=== PATIENT | male | born 1940 | race Caucasian/White ===

== ENCOUNTER 2022-01-23 11:40 | Outpatient (CLI) | payer OTHER, SELFPAY ==
[2022-01-23 17:24] LABS: Albumin* 4.2 g/dL (3.3-5.0); Chloride* 103 mmol/L (96-114); Sodium* 139 mmol/L (135-149)
[2022-01-23 17:26] LABS: Aspartate Amino Transferase* 29 U/L (12-35); Bilirubin Total* 0.5 mg/dL (0.1-1.5); Carbon Dioxide* 27 mmol/L (20-32); Creatinine* 1.1 mg/dL (0.5-1.5); Estimated Glomerular Filt Rate 67 ml/min
[2022-01-23 17:27] LABS: Alanine Aminotransferase* 26 U/L (4-50); Alkaline Phosphatase* 67 U/L (40-150); Blood Urea Nitrogen* 25 mg/dL (7-30); Calcium* 9.7 mg/dL (8.4-10.6); Glucose* 102 mg/dL (60-115); Total Protein* 7.2 g/dL (6.0-8.3)
== END 2022-01-23 11:41 | disposition home or self-care (01) ==
PROVIDERS: PCP Family Medicine; Visit Provider Family Medicine
DX: R53.1 Weakness (principal); R05.9 Cough, unspecified
CPT/HCPCS: 80053; 84443

== ENCOUNTER 2022-10-23 08:30 | Outpatient (CLI) | payer OTHER, SELFPAY | END 2022-10-23 08:31 | disposition home or self-care (01) | LOC: NFLDREF 10-25 10:54 | PROVIDERS: PCP Family Medicine; Referring Provider Family Medicine; Visit Provider Family Medicine | DX: R53.1 Weakness (principal); R53.83 Other fatigue; Z13.29 Encounter for screening for other suspected endocrine disorder; Z13.21 Encounter for screening for nutritional disorder; Z12.5 Encounter for screening for malignant neoplasm of prostate | CPT/HCPCS: 80048; 82306; 82607; 84153; 84403; 84443 ==

== ENCOUNTER 2023-12-01 13:27 | Outpatient (CLI) | payer OTHER, SELFPAY | END 2023-12-01 13:28 | disposition home or self-care (01) | PROVIDERS: PCP Internal Medicine; Visit Provider Internal Medicine | DX: E78.5 Hyperlipidemia, unspecified (principal); Z13.228 Encounter for screening for other metabolic disorders; Z12.5 Encounter for screening for malignant neoplasm of prostate | CPT/HCPCS: 80053; 80061; G0103 ==

== ENCOUNTER 2023-12-12 14:47 | Outpatient (CLI) | payer OTHER, SELFPAY | END 2023-12-12 14:48 | disposition home or self-care (01) | LOC: CT 14:49 | PROVIDERS: Visit Provider Orthopaedic Surgery Sports Medicine | DX: M75.101 Unspecified rotator cuff tear or rupture of right shoulder, not specified as traumatic (principal); M12.811 Other specific arthropathies, not elsewhere classified, right shoulder; M19.011 Primary osteoarthritis, right shoulder | CPT/HCPCS: 73200 ==

== ENCOUNTER 2024-02-12 13:27 | Outpatient (RCR) | payer OTHER, SELFPAY ==
--- NOTE | 2024-02-12 16:54 | PT.OPEX ---
PT [place] [facility] Eval PT [facility] Eval Start: 02/12/24 10:29 Freq: Status: Active Protocol: Document 02/12/24 10:32 NICOLE (Rec: 02/12/24 16:52 NICOLE [id number]) E-signed By Antwon Johnson DPT Physical Therapy Outpatient Evaluation Insurance Information Recert Due Date 05/12/24 Insurance Name Other; See Comments Insurance Information/Comments [employer] gold choice Medical Diagnosis R rotator cuff tear Treating Diagnosis R shoulder pain muscle weakness Referring MD natalie yu Subjective Subjective Zev comes into clinic dealing with R shoulder pain with expected tear of rotator cuffs . He was originally planning on getting a shoulder replacement however, he felt his L knee was worse and in need of L TKA. His biggest goal for therapy is to try improving the pain in his R shoulder as much as he can, especially prior to his surgery. He notes significant limitation with reaching away from his body or overhead. Uses a fair amount of tylenol for pain relief. Can get pain time to time with holding objects near. Pain Comments 0-5/10 Current Work Status Retired Precautions Treatment Precautions/Contraindications hx pacemaker, will get LTKA in ~2-3 weeks Objective Other/Pertinent Objective SHOULDER AROM Flexion: R65 L120 Abduction: R70 L 130 Internal Rotation: R L 4 External Rotation: R45 NECK/SHOULDER MMT: Shoulder flexion: R 2+/5 L4- / 5 Shoulder abduction: R 2+/5 L 4 -/5 Shoulder External Rotation: R 2+/5 L4 /5 Shoulder Internal Rotation: R 4/5 L 5/5 Elbow flexion: R 3+/5 L 4+/5 Assessment Assessment/Impression Pt is a 83 yr old male who presents with concerns of R shoulder pain secondary to RC tearing. Patient also has notable objective findings including limited ROM, impaired GH stability , decreased strength also likely contributing to the problem. Patient is a good candidate for skilled therapy to target deficits described above. Skilled PT intervention is necessary for use of therapeutic exercise manual therapy, neuromuscular re- education, and therapeutic activity. Functional impairments include difficulty with: lifting reaching carrying. See appropriate sections of PT eval for complete list of goals and POC . D/C plan and criteria is for pt to achieve the goals as listed below or until max rehab potential is met. Pt was agreeable with plan of care and goals established. 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 Coordination/Communication With Referral Source Treatment Plan/Direct Interventions Joint Mobilization,Manual Therapy,Neuromuscular Re-ed, Self-Care/Home Management, Therapeutic Activities, Therapeutic Exercises Frequency/Duration 1-2 visits a week for 6-8 weeks Patient Will Be Discharged From Therapy Completion of LTG(s), Independent w/HEP, Independently Progressing Evaluation Billing Untimed Code Treatment Minutes 15 Complexity Low Certification Information Initial Certification Date 02/12/24 Ending Certification Date 05/12/24 Provider Signature Required Yes Provider Signature Shows Agreement With POC & Medical Necessity Physician NPI Number Write NPI# Here Physician Comment/Change : Physician Signature & Date Requested Please Sign/Date Here
== END 2024-06-01 07:35 | disposition home or self-care (01) ==
PROVIDERS: PCP Physician Assistant; Visit Provider Orthopaedic Surgery Sports Medicine
DX: M75.101 Unspecified rotator cuff tear or rupture of right shoulder, not specified as traumatic (principal); M12.811 Other specific arthropathies, not elsewhere classified, right shoulder; M62.81 Muscle weakness (generalized); M25.511 Pain in right shoulder; Z51.89 Encounter for other specified aftercare
CPT/HCPCS: 97110; 97140; 97161

== ENCOUNTER 2024-03-01 07:07 | Day surgery (SDC) | payer OTHER, SELFPAY ==
[2024-03-01] VITALS (22 sets, daily range): BP systolic 102–160; BP diastolic 57–96; PULSE 69–90; RESP 14–20; TEMP 35.5–36.8; O2SAT 93–98; BMI 31.6
[2024-03-01] MEDS: ACETAMINOPHEN 500 MG TABLET 1000 MG PO ×3 (07:14→20:20)
[2024-03-01] MEDS: OXYCODONE (CR) 10 MG TAB.ER.12H PO (07:14)
[2024-03-01] MEDS: SODIUM CHLORIDE 0.9 % (FLUSH) 10 ML SYRINGE IVF (08:20)
[2024-03-01] MEDS: LACTATED RINGERS 1000 ML 1,000 ML 100 ML IV ×2 (08:20→10:54)
--- NOTE | 2024-03-01 10:00 | W.PM.H&PU ---
History & Physical Update History & Physical Update H&P Reviewed and patient assessed: No changes noted
--- NOTE | 2024-03-01 10:09 | CRLHL7_ITS ---
For Patients: As a result of the Cures Act, medical imaging exams and procedure reports are released immediately into your electronic medical record. You may view this report before your referring provider. If you have questions, please contact your health care provider. INDICATION: Left postop TECHNIQUE: Two views left knee FINDINGS/IMPRESSION: Left knee arthroplasty in appropriate position. Postoperative soft tissue edema and gas. Dictated by Michelle Fall MD @ 03/02/2024 6:02:37 AM (Electronically Signed)
[2024-03-01] MEDS: fentaNYL 100 MCG/2 ML inj IVP (10:20)
[2024-03-01] MEDS: MIDAZOLAM HCL 1 MG/ML inj IVP (10:20)
--- NOTE | 2024-03-01 10:25 | SUR.PREOP ---
TIME?OUT:?left knee PT/RN/MDA?VERIFICATION?OF?SURGICAL?SITE,?PROCEDURE,?AND?CONSENT OBTAINED?PRIOR?TO?INVASIVE?PROCEDURE.
--- NOTE | 2024-03-01 10:50 | P.NB_ITS ---
Nerve Block Nerve Block Time Seen by Provider: 10:20 Date Seen: 03/01/24 Type of block requested by surgeon for post-operative analgesia: adductor canal Side: left Time out performed: Yes Verification of patient name: Yes Verification of date of : Yes Site marking: site marked Name of person performing procedure: Sharath Continuous monitoring Was continuous monitoring of O2 sat, B/P, school bus monitor, recorded every 15 minutes?: Yes Procedure Checklist: sterile prep, needles and gloves Ultrasound guided. Images saved: Yes Medications given in 5ml increments after negative aspiration: Ropivicaine %: 0.5 mL: 20 Needle gauge: 20 Decadron (mg): 10 Precedex (mcg): 25 Patient tolerated procedure well: Yes Additional comments: Needle noted adjacent to nerve Block Charges Block Charge (with Pro Fee): Femoral Nerve Use of Ultrasound Machine for Block: Yes- US Guidance/pain block
--- NOTE | 2024-03-01 10:50 | W.ANESCHARGE ---
Anesthesia Charges Start Date/Time Anesthesia Start Date: 03/01/24 Anesthesia Start Time: 10:30 Stop Date/Time Anesthesia Stop Date: 03/01/24 Anesthesia Stop Time: 13:18 Summary Extremes of Age - Over 70 or under 1: MDA
--- NOTE | 2024-03-01 10:50 | W.PM.NB ---
Nerve Block Nerve Block Time Seen by Provider: 10:20 Date Seen: 03/01/24 Type of block requested by surgeon for post-operative analgesia: geniculars Side: left Time out performed: Yes Verification of patient name: Yes Verification of date of : Yes Site marking: site marked Name of person performing procedure: Sharath Continuous monitoring Was continuous monitoring of O2 sat, B/P, electrical estimator, recorded every 15 minutes?: Yes Procedure Checklist: sterile prep, needles and gloves Medications given in 5ml increments after negative aspiration: Ropivicaine %: 0.5 mL: 9 Needle gauge: 25 Patient tolerated procedure well: Yes Block Charges Block Charge (with Pro Fee): Genicular Nerve Block Use of Ultrasound Machine for Block: No
[2024-03-01] MEDS: TRANEXAMIC ACID 100 MG/ML INJ 1000 MG IV (10:52)
[2024-03-01] MEDS: CEFAZOLIN 2 GM in 0.9 % SODIUM CHLORIDE Mini-bag 100 ML IVPB ×2 (10:52→18:06)
--- NOTE | 2024-03-01 11:34 | W.ANESCHARGE ---
Anesthesia Charges Start Date/Time Anesthesia Start Date: 03/01/24 Anesthesia Start Time: 10:30 Stop Date/Time Anesthesia Stop Date: 03/01/24 Anesthesia Stop Time: 13:18 Summary Extremes of Age - Over 70 or under 1: DEAN OF FACULTY
--- NOTE | 2024-03-01 12:29 | P.ORPRC_ITS ---
Procedure Note Date of procedure: 03/01/24 Procedure: PREOPERATIVE DIAGNOSIS: 1. Left knee osteoarthritis, primary, severe POSTOPERATIVE DIAGNOSIS: 1. Left knee osteoarthritis, primary, severe PROCEDURE: 1. Left total knee arthroplasty - subvastus SURGEON: Amari Jarrett MD. CREATIVE ART DIRECTOR: Chris Stallings PA-C - Of note, a skilled junior assistant manager was critical for this case to aid in patient positioning, tissue retraction, limb manipulation/positioning, and closure. ANESTHESIA: Spinal anesthetic EBL: 50ml IMPLANTS: DePuy J&J all cemented TKA - Attune PS femur size 8, size 8 tibia, 6 mm poly spacer, 41mm patella TOURNIQUET: 100 minutes at 300 torr COMPLICATIONS: None evident INDICATIONS: The patient is a pleasant 83-year-old male who has experienced severe left knee pain and difficulty bearing weight. Workup included x-rays which revealed severe osteoarthrosis in the knee. Given the deformity, the dysfunction, and the pain, as well as the failure of nonoperative management, recommendation was made for surgery. FINDINGS: Full-thickness chondral loss diffusely throughout the medial compartment. Degenerative medial meniscus pathology. DESCRIPTION OF PROCEDURE: Following a thorough discussion of risks, benefits, and alternatives consent was obtained and the left knee was marked. The patient was brought to the operating room and placed supine on the operating table. Induction of anesthesia was undertaken. 2 g IV Ancef and 1 g tranexamic acid was administered within 1 hr of incision preoperatively. Proper time-out was performed identifying proper patient, site, procedure. The operative extremity w as prepped and draped in the appropriate sterile fashion using ChloraPrep after the patient was positioned supine with all bony prominences well padded. A longitudinal, anterior, midline skin incision was made starting approximately 3cm proximal to the superior pole of the patella and advanced distal to the tibial tubercle. A subvastus approach was utilized. A medial subperiosteal sleeve was created with knife, hearn elevator and curved osteotome. The retropatellar fatpad was resected and the synovium in the suprapatellar pouch excised to visualize the anterior femoral cortex. Femoral preparation was performed via an intramedullary guide. Step drill allowed access into the femoral canal. The distal cutting guide was placed with 5? of valgus and 12 mm cut on the distal femur. Femur was sized using a anterior referencing guide in 3? of external rotation. This found have a best fit with the sizing noted above. The 4 in 1 cutting block was then placed, and the distal femur shaped accordingly. The box cut was then created and the trial implant inserted to confirm appropriate fit. We turned our attention to the proximal tibia. Extramedullary guide was utilized for cutting with the goal of being 90 degree cut from the mechanical axis of the tibia in the varus/valgus plane utilizing tibial crest as the primary alignment. Initially a 3 mm resection was performed from the medial tibial plateau. Ultimately, balancing was achieved in both flexion and extension in both varus and valgus. The knee was able to achieve full extension as well comfortably. The patella was initially measured and found have a thickness of 26 mm. It was resected back to approximately 15 mm. It was sized to be a best fit with as noted above. This was drilled, trial placed. All trials were placed and found to have an excellent stability and balance. At this stage, trial implants were removed, the knee was thoroughly irrigated with normal saline, and the cement was mixed. After irrigation, the knee was thoroughly dried, and cement placed, with the real tibial and femoral implants placed along with the patella. Trial poly spacer was placed and confirmed to have excellent range of motion and full extension, and the real poly spacer opened and inserted. All extra cement was removed, and a 3 min Betadine soak performed. Finally, a final irrigation round with normal saline was performed. Closure performed with 0 PDS and #0 Stratafix for the quad tendon/retinaculum. 2-0 Vicryl/Stratafix for the subcutaneous and 4-0 Monocryl for subcuticular closure. Dressings were applied and the patient was awoken from anesthesia after the tourniquet deflated and transferred the PACU in stable condition. A skilled junior assistant manager was critical for this case to aid in patient positioning, tissue retraction, bone exposure, limb manipulation/positioning, patient safety, and closure. PLAN: 1. Weight bear as tolerated operative extremity. 2. 23 hr perioperative antibiotics. 3. Ice. 4. PT/OT consults for ambulation assistance/mobility education. 5. Social work consult for discharge planning. 6. DVT prophylaxis with at SCDs and aspirin twice daily.
--- NOTE | 2024-03-01 15:09 | P.IMCN_ITS ---
Date of Consult Patient: Other Consult date: 03/01/24 Requesting Physician: Orthopedics Primary Care Provider: Yo Jason PA-C Consult Narrative Narrative: Osman Manning is a 83 year old male admitted to the hospital for left total knee arthroplasty. Procedure performed by Dr. Jarrett. No complications. Dr. Jarrett requests consultation for management of medical problems. Patient reports doing well at this time. Not having significant pain or nausea. He has no concerns. He is had a preop physical which did not identify any significant medical problems or concerns for the perioperative period. No recent illness or injury. [facility] Medical History (Updated 03/01/24 @ 15:15 by Darnell Luu MD) Right rotator cuff tear arthropathy ?M75.101 - Unspecified rotator cuff tear or rupture of right shoulder, not specified as traumatic (ICD-10) ?M12.811 - Other specific arthropathies, not elsewhere classified, right shoulder (ICD-10) Chronic obstructive pulmonary disease ?J44.9 - Chronic obstructive pulmonary disease, unspecified (ICD-10) Hyperlipidemia (12/19/08) ?E78.5 - Hyperlipidemia, unspecified (ICD-10) Osteoarthritis of lumbar spine ?M47.816 - Spondylosis without myelopathy or radiculopathy, lumbar region (ICD-10) Mobitz type I incomplete atrioventricular block ?I44.1 - Atrioventricular block, second degree (ICD-10) Spinal stenosis of lumbar region ?M48.061 - Spinal stenosis, lumbar region without neurogenic claudication (ICD-10) GERD (gastroesophageal reflux disease) ?K21.9 - Gastro-esophageal reflux disease without esophagitis (ICD-10) Weakness ?R53.1 - Weakness (ICD-10) Reactive airway disease ?J45.909 - Unspecified asthma, uncomplicated (ICD-10) Calculus of kidney (12/19/08) ?N20.0 - Calculus of kidney (ICD-10) Hypogonadism in male ?E29.1 - Testicular hypofunction (ICD-10) Left rotator cuff tear arthropathy ?M75.102 - Unspecified rotator cuff tear or rupture of left shoulder, not specified as traumatic (ICD-10) ?M12.812 - Other specific arthropathies, not elsewhere classified, left shoulder (ICD-10) Pseudoparalysis ?R29.818 - Other symptoms and signs involving the nervous system (ICD-10) Hard of hearing ?H91.90 - Unspecified hearing loss, unspecified ear (ICD-10) Multiple pulmonary nodules (02/13/09) ?R91.8 - Other nonspecific abnormal finding of lung field (ICD-10) Diverticulosis of intestine (12/19/08) ?K57.90 - Diverticulosis of intestine, part unspecified, without perforation or abscess without bleeding (ICD-10) Surgical History (Updated 03/01/24 @ 15:13 by Darnell Luu MD) History of arthroplasty of left knee ?Z96.652 - Presence of left artificial knee joint (ICD-10) Status post cardiac pacemaker procedure ?Z95.0 - Presence of cardiac pacemaker (ICD-10) History of varicose vein ligation and stripping ?Z98.890 - Other specified postprocedural states (ICD-10) History of inguinal hernia repair (12/19/08) ?Z98.890 - Other specified postprocedural states (ICD-10) ?Z87.19 - Personal history of other diseases of the digestive system (ICD-10) Family History (Updated 03/01/24 @ 15:16 by aDrnell Luu MD) Sister Alzheimers disease Multiple sclerosis Social History (Updated 03/01/24 @ 15:17 by Darnell Luu MD) Narrative: He lives [place]. He lives in a house that has 2 steps to get in but then he lives on 1 level. His friend Ezekiel is going to help him after surgery. His friend Ezekiel is healthcare power of assistant district attorney. Code status is DNR. Remote history of smoking cigarettes. He drinks a couple alcoholic beverages per week. What is your current living situation?: I presently do not have a place to live Problems where you live: no known problems In the past 12 months, utilities in danger of being shut off: no In past 12 months, lack of transportation kept you from medical appts, meetings, work, or getting things needed for daily living: no In the past 12 mos, have been you worried that your food would run out before you had money to buy more?: never true In the past 12 mos, the food you bought just didn't last and you didn't have money to buy more?: never true Smoking Status: Never smoker Do you use any of these nicotine containing products: None Second hand tobacco smoke exposure: No How often do you have a drink containing alcohol: 2-3 times a week Alcohol type: beer How many standard drinks containing alcohol do you have on a typical day: 1 or 2 AUDIT-C Alcohol total score: 3 Non-prescribed substance use: denies use Caffeine: Yes How often does anyone, including family, friends and others, physically hurt you : never How often does anyone, including family, friends and others, insult or talk down to you: never How often does anyone, including family, friends and others, threaten you with harm: never How often does anyone, including family, friends and others, scream or curse at you: never Little interest or pleasure in doing things: not at all Feeling down, depressed, or hopeless: not at all service: Yes Meds Home Medications and Allergies Home Medications ?Medication ?Instructions ?Recorded ?Confirmed ?Type albuterol sulfate 90 mcg/actuation 2 inhalation PRN 12/24/21 02/10/24 History aerosol inhaler aspirin 81 mg tablet,delayed 81 mg PO QDAY 12/24/21 03/01/24 History release multivitamin 1 tab PO QDAY 12/24/21 03/01/24 History Allergies Allergy/AdvReac Type Severity Reaction Status Date / Time No Known Allergies Allergy Verified 03/01/24 07:32 Exam Narrative: Exam Narrative: He is alert and appears in no obvious distress. He is quite hard of hearing. Eyes normal. Oropharynx with small airway. No facial asymmetry. Neck is supple without mass or adenopathy. Respirations are clear to auscultation with somewhat diminished breath sounds in all lung roberts. Cardiovascular: S1, S2, regular rate and rhythm. Abdomen: Bowel sounds active. Abdomen is soft without tenderness or mass. Lower extremities without significant edema. Intact pedal pulses. Intact strength and motion in both ankles. Knee incision is covered with a Bandage and no obvious redness swelling or drainage. Const: Vital Signs, click to edit/add: Vital Signs - 24 hr 03/01/24 07:52 03/01/24 10:20 03/01/24 10:25 Temperature 97.6 F Pulse Rate 70 79 73 Respiratory Rate 20 20 20 Blood Pressure 149/80 H 137/73 127/65 Pulse Oximetry 95 95 95 Oxygen Delivery Me thod Room Air Nasal Cannula Nasal Cannula Oxygen Flow Rate 3 3 03/01/24 13:15 03/01/24 13:20 03/01/24 13:25 Temperature 97.1 F L Pulse Rate 70 72 69 Respiratory Rate 14 16 16 Blood Pressure 102/77 104/71 128/74 Pulse Oximetry 96 96 96 Oxygen Delivery Me thod Room Air Room Air Room Air Oxygen Flow Rate 03/01/24 13:30 03/01/24 13:35 03/01/24 13:40 Temperature 97.1 F L Pulse Rate 70 71 69 Respiratory Rate 16 16 16 Blood Pressure 141/79 H 131/79 141/91 H Pulse Oximetry 95 96 95 Oxygen Delivery Me thod Room Air Room Air Room Air Oxygen Flow Rate Documenting provider has reviewed patient's vital signs: yes Assessment and Plan Assessment and plan (1) History of arthroplasty of left knee: Problem comment: 03/01/2024, Dr. Jarrett, no complications Status: Acute Plan Patient is admitted to the hospital for knee arthroplasty and postoperative care. Patient is indicated some concerns about his ability to live independently after surgery. Friend Ezekiel is apparently available to assist. Will have therapy assess his mobility. Will monitor for complications of his chronic medical problems. Total Time Spent Total Time Spent: 40 minutes
[2024-03-01] MEDS: OXYCODONE 5 MG TABLET PO ×2 (15:10→20:20)
[2024-03-01] MEDS: MONTELUKAST 10 MG TABLET PO (18:07)
--- NOTE | 2024-03-01 19:29 | PC.NURSE ---
Patient alert and oriented x4. Arrived to the unit around 1800. Complains of nausea. CIWA negative. Complains of neck pain. Vital signs stable.
--- NOTE | 2024-03-01 19:38 | PC.NURSE ---
Patient alert and oriented. Ambulating to the bathroom with Ax1 with walker and gait belt. Had 100% of his dinner, tolerated well with no nausea or vomiting. Vital signs stable. Pain being managed by PRN medications. Dressing at surgical site clean dry and intact
[2024-03-01] MEDS: SENNOSIDES 1 TAB TABLET 2 TAB PO (20:19)
[2024-03-01] MEDS: ASPIRIN 81 MG TABLET EC PO (20:20)
[2024-03-02] MEDS: OXYCODONE 5 MG TABLET PO ×4 (02:04→12:15)
[2024-03-02] MEDS: CEFAZOLIN 2 GM in 0.9 % SODIUM CHLORIDE Mini-bag 100 ML IVPB (02:04)
[2024-03-02] MEDS: ACETAMINOPHEN 500 MG TABLET 1000 MG PO ×2 (02:04→08:25)
[2024-03-02 02:19] VITALS: BP 167/81; PULSE 92; RESP 20; TEMP 36.6; O2SAT 97
[2024-03-02] MEDS: OMEPRAZOLE 20 MG CAPSULE DR PO (06:17)
[2024-03-02 06:31] LABS: Basophils Percent Auto 0.1 % (0.0-3.0); Hematocrit 36.9 % (37.0-53.0); Immature Granulocytes Pct Auto 0.1 %; Mean Corpuscular HGB Conc 33 gm/dL (32-36); Mean Corpuscular Hemoglobin 31 pg (26-34); Mean Corpuscular Volume 96 fL (80-100); Neutrophils Percent Auto 79.8 % (42.0-72.0); Platelet Count* 183 K/uL (140-440); RDW Coefficient of Variation % 12.6 % (11.5-15.5); Red Blood Count 3.85 m/uL (4.30-5.90); White Blood Count* 14.97 K/uL (4.50-11.00)
[2024-03-02 06:33] LABS: Slide Review Reflex No
[2024-03-02 06:49] LABS: Potassium* 4.5 mmol/L (3.6-5.1); Sodium* 137 mmol/L (135-149)
--- NOTE | 2024-03-02 06:49 | PC.NURSE ---
23-07: pleasant and cooperative. calls appropriately. SBA with gb and walker, tolerated well. Rates pain 7/10 in left knee, prn oxy given x 2, active ice on. Dressing to knee CDI. VSS. Pts friend to be here at 0800 to learn with therapies as he will be his caregiver during recovery.
[2024-03-02 06:52] LABS: Blood Urea Nitrogen* 20 mg/dL (7-30); Creatinine* 0.8 mg/dL (0.5-1.5); Est. Creatinine Clearance* 59.61; Estimated Glomerular Filt Rate 88 ml/min
[2024-03-02 07:50] VITALS: BP 145/82; PULSE 73; RESP 18; TEMP 36.9; O2SAT 97
[2024-03-02] MEDS: ASPIRIN 81 MG TABLET EC PO (08:25)
[2024-03-02] MEDS: SENNOSIDES 1 TAB TABLET 2 TAB PO (08:25)
[2024-03-02] MEDS: MULTIVITAMIN/MINERALS 1 TABLET 1 TAB PO (08:25)
--- NOTE | 2024-03-02 10:35 | PM.ORPN ---
Subjective Subjective Date Seen: 03/02/24 Principal diagnosis: Status postop day 1 left total knee arthroplasty Interval history: Patient reports doing okay No acute events over night. Struggling with pain at times. Pain managed with scheduled and PRN medications, ice. DVT prophylaxis: 81 mg aspirin by mouth twice daily, SCDs, walking. Denies fevers, chills, aches, N/V, CP, SOB/JORDAN, or lightheadedness. Passing flatus. Reports that he does not have outpatient physical therapy scheduled. Requesting PT to be in the afternoon which is when he will have a ride available. Ortho Exam Narrative Exam Narrative: -Patient appears comfortable; no apparent acute distress -Alert and oriented times 3 -Operative knee notably swollen; no induration; no significant ecchymosis; no erythematous streaking Warmth appropriate -Surgical dressing clean, dry, intact; no drainage -Bilateral calfs soft; no significant swelling, edema, tenderness, erythema, discoloration, warmth, or palpable cords -2+ DP/PT pulses, intact dermatomes and myotomes distally (5/5 strength) Const Vital Signs, click to edit/add: Vital Signs - 24 hr 03/01/24 13:15 03/01/24 13:20 03/01/24 13:25 Temperature 97.1 F L Pulse Rate 70 72 69 Pulse Rate [Right Pulse Oximeter] Respiratory Rate 14 16 16 Blood Pressure 102/77 104/71 128/74 Blood Pressure [Left Arm] Pulse Oximetry 96 96 96 Oxygen Delivery Method Room Air Room Air Room Air 03/01/24 13:30 03/01/24 13:35 03/01/24 13:40 Temperature 97.1 F L Pulse Rate 70 71 69 Pulse Rate [Right Pulse Oximeter] Respiratory Rate 16 16 16 Blood Pressure 141/79 H 131/79 141/91 H Blood Pressure [Left Arm] Pulse Oximetry 95 96 95 Oxygen Delivery Method Room Air Room Air Room Air 03/01/24 13:50 03/01/24 14:00 03/01/24 14:15 Temperature 96.1 F L 96 F L 96 F L Pulse Rate 71 70 70 Pulse Rate [Right Pulse Oximeter] Respiratory Rate 16 16 18 Blood Pressure 115/71 155/91 H 145/88 H Blood Pressure [Left Arm] Pulse Oximetry 96 96 96 Oxygen Delivery Method Room Air Room Air Room Air 03/01/24 14:30 03/01/24 14:45 03/01/24 15:00 Temperature 96.8 F L Pulse Rate 70 71 Pulse Rate [Right Pulse Oximeter] Respiratory Rate 18 16 Blood Pressure 160/96 H 158/90 H Blood Pressure [Left Arm] Pulse Oximetry 96 97 96 Oxygen Delivery Method Room Air Room Air 03/01/24 15:00 03/01/24 15:15 03/01/24 15:45 Temperature 97.3 F L Pulse Rate 77 Pulse Rate [Right Pulse Oximeter] 77 Respiratory Rate 18 18 Blood Pressure 120/90 H Blood Pressure [Left Arm] 152/83 H Pulse Oximetry 96 96 Oxygen Delivery Method Room Air Room Air Room Air 03/01/24 17:00 03/01/24 18:00 03/01/24 19:00 Temperature 97.9 F 98.3 F Pulse Rate 74 Pulse Rate [Right Pulse Oximeter] 78 90 Respiratory Rate 20 20 Blood Pressure 140/70 H Blood Pressure [Left Arm] 152/79 H 132/78 Pulse Oximetry 93 98 95 Oxygen Delivery Method Room Air Room Air Room Air 03/01/24 20:00 03/01/24 23:30 03/01/24 23:30 Temperature Pulse Rate 80 Pulse Rate [Right Pulse Oximeter] 83 Respiratory Rate 18 Blood Pressure 147/57 H Blood Pressure [Left Arm] Pulse Oximetry 96 95 Oxygen Delivery Method Room Air 03/01/24 23:30 03/01/24 23:30 03/02/24 02:19 Temperature 98.3 F 97.8 F Pulse Rate Pulse Rate [Right Pulse Oximeter] 83 92 Respiratory Rate 18 18 20 Blood Pressure Blood Pressure [Left Arm] 156/77 H 167/81 H Pulse Oximetry 95 95 97 Oxygen Delivery Method Room Air Room Air Room Air 03/02/24 07:50 03/02/24 07:50 03/02/24 07:50 Temperature Pulse Rate Pulse Rate [Right Pulse Oximeter] 73 Respiratory Rate 18 Blood Pressure Blood Pressure [Left Arm] Pulse Oximetry 97 97 Oxygen Delivery Method Room Air 03/02/24 07:50 Temperature 98.5 F Pulse Rate Pulse Rate [Right Pulse Oximeter] 73 Respiratory Rate 18 Blood Pressure Blood Pressure [Left Arm] 145/82 H Pulse Oximetry 97 Oxygen Delivery Method Room Air Assessment and Plan Assessment and plan (1) History of arthroplasty of left knee: Problem details: 03/01/2024, Dr. Jarrett, no complications Status: Acute Plan - Complete 23 hour perioperative antibiotics. - PT/OT consult for education and assistance. - Social work consult for discharge planning - Prescribed analgesics as needed - DVT prophylaxis: 81 mg aspirin by mouth twice daily, walking, and SCDs - Anticipation is for discharge to home with family/friends today 03/02/2024 if the patient remains medically stable, pain is controlled, and they are safe with mobilization. - PT is now scheduled to start 03/04/2024 in [place]
--- NOTE | 2024-03-02 10:48 | PC.SOCIAL ---
Discharge planning: utility worker met with pt and his friend, Cesar, today in pt's room. Pt plans to go home today and his friend Cesar is able to stay with him until Friday. Pt's daughter will be giving him rides to his outpatient physical therapy appointments that start on in [place]. Social work to follow-up as needed.
== END 2024-03-02 12:17 | disposition home or self-care (01) ==
LOC: OR 07:09 → MEDSURG 07:11
PROVIDERS: PCP Physician Assistant; Visit Provider Orthopaedic Surgery Sports Medicine
PROC: (CPT 27447; principal; 2024-03-01 09:45)
DX: M17.12 Unilateral primary osteoarthritis, left knee (principal); G89.18 Other acute postprocedural pain; J44.9 Chronic obstructive pulmonary disease, unspecified; I44.1 Atrioventricular block, second degree; M48.061 Spinal stenosis, lumbar region without neurogenic claudication; K21.9 Gastro-esophageal reflux disease without esophagitis; Z95.0 Presence of cardiac pacemaker; E78.5 Hyperlipidemia, unspecified
CPT/HCPCS: 27447; 01402; 36415; 64447; 64454; 73560; 76942; 82565; 84132; 84295; 84520; 85025; 97110; 97116; 97161; 97165; 97530; 99100; A9153; A9270; C1776; J0690; J1100; J2250; J2405; J2704; J2795; J3010; J7120

== ENCOUNTER 2024-04-01 15:15 | Outpatient (RCR) | payer OTHER, SELFPAY ==
--- NOTE | 2024-02-23 14:35 | PT.OPEX ---
PT [place] [facility] Eval PT [facility] Out[facility] Eval Start: 02/23/24 10:43 Freq: Status: Active Protocol: Document 02/23/24 13:22 NLR (Rec: 02/23/24 13:55 NLR [id number]) E-signed By Theresa Dc DPT Physical Therapy Outpatient Evaluation Insurance Information Recert Due Date 05/23/24 Insurance Name Medicare B,Other; See Comments Insurance Information/Comments [employer] Medical Diagnosis M17.12 Unilateral primary osteoarthritis, left knee Z96.652 Presence of Left artificial knee joint Treating Diagnosis M25.562 Left Knee pain M25.662 Left Knee stiffness Imaging Report Information 01/13/24 X-ray: Weightbearing AP, Lateral and Mccune views of the left knee were obtained today from [facility], were ordered and reviewed by me, and show severe osteoarthrosis primarily involving the medial knee with [id number] joint space loss, subchondral sclerosis, and subchondral cystic change. Tricompartmental osteophytes also noted. No acute fractures avulsions. Subjective Preferred Name ZEV Subjective Patient has been seeing PT for a Right rotator cuff tear but also struggling with L knee pain and weakness for quite some time. He will likely need a shoulder surgery in the future, but Dr. Jarrett recommended knee surgery first . Pain Comments Varies Date of Last Physician Visit 01/14/24 Date of Surgery (If applicable) 03/01/24 Current Work Status Retired Occupation Patient is a retired construction project manager. He lives alone in a multilevel home with steps to enter with railing. Bedroom, bathroom and laundry are all on main floor. Precautions Treatment Precautions/Contraindications PACEMAKER Weight Bearing Status Weight Bear as Tolerated Therapy Limitations/Systems Review Hearing Objective Other/Pertinent Objective HAND DOM: RIGHT ROM: AROM R knee 0-120, L knee 0-120 STRENGTH: R knee WFL, L knee 3 +-4/5 POSTURE: Moderate genu varus EDEMA: None FLEXIBILITY: Hypoflexibility noted B HS, HC FOOTWEAR: Athletic shoes Assessment Assessment/Impression Zev is a pleasant 83 year old male who presents for PT evaluation pre-TKA scheduled with Dr. Jarrett on 03/01/24. He has some knee weakness, full range of motion and is I with mobility at this time. He notes his knee will give out on him once in awhile. Pain is variable. He was seen today for pre-op education and exercise instruction. Skilled PT is appropriate, although he is hoping to go to a SNF short term after the surgery. Primary Functional Limitations Difficulty walking stairs, unable to get down or back up from floor. Plan of Care Rehabilitation Potential Good Physical Therapy Goals 1. Patient will be independent with home exercise program as instructed, modified and progressed by physical therapist in order to be independently and actively participating in their rehabilitation and return to prior level of function. Goal to be achieved by 05/21/2024. 2. Patient will demonstrate ability to walk for 30 minutes (s) without significant increase in pain greater than 2/10 to allow patient to be able to safely and independently return to participation in desired level of function with daily activities such grocery shopping, going to appointments, walking for exercise, general housekeeping without pain or difficulty. Goal to be achieved by 2023. Coordination/Communication With Referral Source Treatment Plan/Direct Interventions Gait Training,Manual Therapy, Neuromuscular Re-ed,Self-Care/ Home Management,Therapeutic Activities,Therapeutic Exercises Frequency/Duration 1X for pre-op evaluation only at this time. He is planning to do his rehab at SNF initially following surgery. Evaluation Billing Untimed Code Treatment Minutes 20 PT Eval No Charge No Complexity Low Certification Information Initial Certification Date 02/23/24 Provider Signature Required Yes Provider Signature Shows Agreement With POC & Medical Necessity Physician NPI Number Write NPI# Here Physician Comment/Change : Physician Signature & Date Requested Please Sign/Date Here
== END 2024-07-07 14:55 | disposition home or self-care (01) ==
PROVIDERS: PCP Physician Assistant; Visit Provider Orthopaedic Surgery Sports Medicine
DX: M17.12 Unilateral primary osteoarthritis, left knee (principal); Z96.652 Presence of left artificial knee joint; M25.562 Pain in left knee; M25.662 Stiffness of left knee, not elsewhere classified; M75.101 Unspecified rotator cuff tear or rupture of right shoulder, not specified as traumatic; Z51.89 Encounter for other specified aftercare
CPT/HCPCS: 97016; 97110; 97116; 97140; 97161; 97164

== ENCOUNTER 2024-04-08 11:09 | Outpatient (CLI) | payer OTHER, SELFPAY | END 2024-04-08 11:10 | disposition home or self-care (01) | PROVIDERS: PCP Physician Assistant; Visit Provider Physician Assistant Medical | DX: D64.9 Anemia, unspecified (principal) | CPT/HCPCS: 82607; 82746; 83540; 83550 ==

== ENCOUNTER 2024-04-15 13:40 | Outpatient (CLI) | payer OTHER, SELFPAY ==
--- NOTE | 2024-04-15 14:00 | CRLHL7_ITS ---
For Patients: As a result of the Century Cures Act, medical imaging exams and procedure reports are released immediately into your electronic medical record. You may view this report before your referring provider. If you have questions, please contact your health care provider. INDICATION: Headaches TECHNIQUE: Noncontrast axial CT of the head is submitted. No comparisons. FINDINGS: The ventricles, sulci and gyri are of normal size, shape and contour for age. Midline structures are centrally located. No convincing evidence of suspicious intra- or extra-axial fluid collections. Mild patchy regions of decreased attenuation within the periventricular and subcortical white matter of both cerebral hemispheres. IMPRESSION: 1. No radiographic evidence of acute intracranial abnormalities. 2. Mild supratentorial white matter changes that are non-specific, but statistically most likely related to chronic small vessel ischemic disease. Please note that all CT scans at this facility use dose modulation, iterative reconstruction, and/or weight-based dosing when appropriate to reduce radiation dose to as low as reasonably achievable. Dictated by Tonio Gaston MD @ 04/15/2024 3:56:22 PM (Electronically Signed)
== END 2024-04-15 13:41 | disposition home or self-care (01) ==
PROVIDERS: PCP Physician Assistant; Visit Provider Physician Assistant Medical
DX: R51.9 Headache, unspecified (principal); M54.2 Cervicalgia
CPT/HCPCS: 70450

== ENCOUNTER 2024-04-26 09:22 | Outpatient (CLI) | payer OTHER, SELFPAY ==
--- NOTE | 2024-04-26 10:22 | W.ANESCHARGE ---
Anesthesia Charges Start Date/Time Anesthesia Start Date: 04/26/24 Anesthesia Start Time: 10:03 Stop Date/Time Anesthesia Stop Date: 04/26/24 Anesthesia Stop Time: 10:20 Summary Extremes of Age - Over 70 or under 1: [employer]
--- NOTE | 2024-04-26 10:49 | W.ANESCHARGE ---
Anesthesia Charges Start Date/Time Anesthesia Start Date: 04/26/24 Anesthesia Start Time: 10:03 Stop Date/Time Anesthesia Stop Date: 04/26/24 Anesthesia Stop Time: 10:20 Summary Extremes of Age - Over 70 or under 1: MDA
== END 2024-04-26 09:23 | disposition home or self-care (01) ==
LOC: OP CLINIC 09:23
PROVIDERS: PCP Physician Assistant; Visit Provider Surgery
DX: R13.10 Dysphagia, unspecified (principal); K44.9 Diaphragmatic hernia without obstruction or gangrene
CPT/HCPCS: 00731; 43239; 88305; 99100; J2704

== ENCOUNTER 2024-08-10 12:04 | Outpatient (RCR) | payer MEDICARE, SELFPAY ==
--- NOTE | 2024-08-10 14:56 | PT.OPEX ---
PT [place] Outpatient Eval PT [facility] Outpatient Eval Start: 08/10/24 09:51 Freq: Status: Active Protocol: Document 08/10/24 09:51 MRS (Rec: 08/10/24 13:27 MRS No Response) E-signed By Emy Figueroa DPT Physical Therapy Outpatient Evaluation Insurance Information Recert Due Date 11/10/24 Insurance Name [employer] Medical Diagnosis R26.89 Other abnormalities of gait and mobility Z96.652 Presence of left artificial knee joint Treating Diagnosis M25.662 Stiffness in Knee Left R53.1 Weakness R26.81 Unsteadiness on Feet Referring MD Amari Jarrett MD Subjective Preferred Name Zev Subjective Initial subjective: Zev presents with c/o impaired balance due to left knee feeling loose and clunking when he walks. He feels that his knee was over worked during a previous therapy session. Zev notices that he loses his balance when he shuts his eyes. He does not know if we can do anything for his knee or balance but had just mentioned it to his MD. ADELA: none Aggravating factors: feels unsteady in the shower. PMH: Pacemaker, L TKA 03/01/24, Work status: retired Pt goals: I don't know if you can really do anything, I just mentioned my balance was off sometimes. [employer] access code: [email or web address] Pain Comments currently= 0/10; at worst 5/10 below knee at night when achy feels like it's Date of Last Physician Visit 07/27/24 Date of Surgery (If applicable) 03/01/25 Current Work Status Retired Occupation Bridge Construction= Precautions Treatment Precautions/Contraindications L TKA on 03/01/24 Weight Bearing Status Full Weight Bearing Therapy Limitations/Systems Review Not Limited Objective Range of Motion Knee Flex: R= 124; L= 123 Knee Ext: R= -1; L= 3 Strength LE Strength (R/L):? -Knee Ext: R: 5/5, L: 4/5? -Knee Flex: R: 5/5, L: 5/5? -Hip Abd: R: 4-/5, L: 4-/5? -Hip Add: R: 5/5, L: 5/5? -Hip Ext: R: 3-/5, L: 3-/5? -Hip Flx: R: 5/5, L: 4/5? Ankle Strength (R/L):? -DF: R: 5/5, L: 5/5? -PF (uni heel raise): R: 5 reps, L: 2 reps? Palpation Decreased sensation to light touch on distal L LE compared to right but able to sense touch Balance & Gait Patel= 44, mostly independent but at significant risk for falls TUG= 20 seconds Zev ambulates with increased UE swing with decreased trunk rotation and decreased bilateral foot clearance. Functional Test Performed & Score LEFS= 40/80 Assessment Assessment/Impression Patient is a 83 year old male presenting to physical therapy for evaluation and treatment of balance and left knee instability. Patient presents with impaired left knee ROM, decreased bilateral hip and left knee extension strength, and balance impairment. These impairments are limiting the patients ability to walk without fear of falling and unable to get up from the ground. Patient appears motivated to participate in PT and presents with good prognosis to improve mobility, strength, proprioception and return to functional activities with skilled physical therapy intervention. ? Educated patient on proper form and muscle activation throughout session in order to optimize muscle function and proper body mechanics.? Primary Functional Limitations impaired balance, weakness, decreased left knee ROM, proprioception Plan of Care Rehabilitation Potential Good Physical Therapy Goals STG's to be met in 2 weeks: 1.) Pt will be able to maintain SLS for 10 seconds or more on each lower extremity to indicate improved dynamic balance. 2.) Pt will be independent and compliant with HEP. LTG's to be met in 4-6 weeks: 1.) Pt will demonstrate 5/5 strength MMT in glut max & glut med to improve dynamic control with SLS activities and gait.? 2.) Pt will increase PATEL balance score by 5 points or greater suggesting improved dynamic balance and decreasing risk for falls. 3.) Pt will achieve zero degrees for left knee extension AROM to imrpove range of motion and stability of left LE. Coordination/Communication With Referral Source Treatment Plan/Direct Interventions Gait Training,Neuromuscular Re -ed,Therapeutic Activities, Therapeutic Exercises Frequency/Duration 1-2x/ week for 4-6 weeks Patient Will Be Discharged From Therapy Completion of LTG(s),Skills Plateau,Independent w/HEP, Independently Progressing Evaluation Billing Untimed Code Treatment Minutes 30 Complexity Low Certification Information Initial Certification Date 08/10/24 Ending Certification Date 11/10/24 Provider Signature Required Yes Provider Signature Shows Agreement With POC & Medical Necessity Physician NPI Number Write NPI# Here Physician Comment/Change : Physician Signature & Date Requested Please Sign/Date Here
== END 2024-12-08 23:59 | disposition home or self-care (01) ==
PROVIDERS: PCP Physician Assistant; Visit Provider Orthopaedic Surgery Sports Medicine
DX: R26.89 Other abnormalities of gait and mobility (principal); Z96.652 Presence of left artificial knee joint; Z51.89 Encounter for other specified aftercare
CPT/HCPCS: 97110; 97161